=== PATIENT | male | born 1980 | race Caucasian/White ===

== ENCOUNTER 2020-02-16 12:10 | Emergency (ER) | payer OTHER ==
[~2020-02-16] VITALS: Ht 162.6 cm; Wt 61.2 kg
[2020-02-16 12:51] VITALS: BP 114/69
--- NOTE | 2020-02-16 13:56 | NUR ---
Pt Eloped NOT in WR
== END 2020-02-16 13:58 | disposition home or self-care (01) ==
LOC: ER 12:14
DX: Z53.21 Procedure and treatment not carried out due to patient leaving prior to being seen by health care provider (principal)